=== PATIENT | female | born 1965 | race Caucasian/White ===

== ENCOUNTER → 2017-04-07 | Outpatient (CLI) | payer BC ==
[~2017-04-07] MED LIST: CALTRATE 600 +1 EAC1 PO; CELEBREX200 MG PO; COLACE100 MG PO; DAILY MULTIPLE1 EACH PO; DEPO-PROVER150 MG/ML IM; Depo-Provera IM; HYZAAR 100-21 TABLET PO; METOPROLOL SUCC50 MG PO; PAXIL CR12.5 MG PO; TYLENOL EXTRA500 MG PO; Tylenol Extra Streng PO; VITAMIN B-122500 MCG SL; Vicodin,Lortab 5/500 PO; Zestoretic,Prinzide PO; Zyrtec PO
== END | disposition home or self-care (01) ==
DX: R26.2 Difficulty in walking, not elsewhere classified (principal); M25.561 Pain in right knee; M25.661 Stiffness of right knee, not elsewhere classified; M62.81 Muscle weakness (generalized); M17.11 Unilateral primary osteoarthritis, right knee
CPT/HCPCS: 97161 GP; 97165 GO; 97530 GP; 97537 GO

== ENCOUNTER 2017-04-26 22:02 | Inpatient (IN) | payer BC ==
[~2017-04-26] VITALS: Ht 172.7 cm; Wt 120.4 kg
[~2017-04-26 22:02] MED LIST changes: +IRON325 M1 PO; +MEGACE20 MG PO; +VIVLODEX10 MG PO
[2017-04-27 09:04] VITALS: BP 86/52
[2017-04-27 13:13] LABS: HEMATOCRIT 30.4 % (36.0-46.0); MCH 33.3 PG (29.0-34.0); MCHC 33.2 G/DL (30.0-36.0); MCV 100.3 FL (83-99); MEAN PLAT.VOLUME 9.8 uM^3 (9.5-12.4); PLATELET COUNT 216 K/uL (156-360); RBC DIS.WIDTH-CV 12.6 % (11.8-14.6); RED BLOOD COUNT 3.03 M/uL (3.80-5.20); WHITE BLOOD COUNT 11.1 K/uL (4.1-10.2)
[2017-04-27 13:57] VITALS: BP 95/54
[2017-04-27 16:13] VITALS: BP 113/60
[2017-04-27 20:21] VITALS: BP 117/63
[2017-04-28 00:10] VITALS: BP 108/58
[2017-04-28 04:12] VITALS: BP 101/55
[2017-04-28 04:55] LABS: HEMATOCRIT 28.3 % (36.0-46.0); MCV 99.3 FL (83-99)
[2017-04-28 05:11] LABS: CHLORIDE 105 mEq/L (99-109); POTASSIUM 3.5 mEq/L (3.7-5.4); SODIUM 137 mEq/L (136-147)
[2017-04-28 05:13] LABS: GLUCOSE 93 mg/dL (70-99)
[2017-04-28 05:14] LABS: ANION GAP 12 MEQ/L (2-14)
[2017-04-28 05:17] LABS: GFR ESTIMATE (CALCULATED) > 59 mL/min/
[2017-04-28 05:18] LABS: UREA NITROGEN (BUN) 14 mg/dL (9-23)
[2017-04-28] MEDS ORDERED: SENNA PLUS TAB1 EACH PO (07:51)
[2017-04-28] MEDS ORDERED: HYDROCODON-ACE1 EAC7 PO (07:52)
[2017-04-28] MEDS ORDERED: LOVENOX40 MG/0.4 SC (07:52)
[2017-04-28 08:01] VITALS: BP 104/51; BP 130/73
[2017-04-28 12:02] VITALS: BP 137/60
[2017-04-28 15:53] VITALS: BP 103/59
[2017-04-28 20:16] VITALS: BP 113/62
[2017-04-29 00:09] VITALS: BP 107/62
[2017-04-29 04:10] VITALS: BP 110/58
[2017-04-29 07:07] LABS: HEMATOCRIT 29.7 % (36.0-46.0)
[2017-04-29 08:15] VITALS: BP 110/54
[2017-04-29] MEDS ORDERED: OXYCONTIN10 MG PO (08:41)
== END 2017-04-29 11:27 | DRG 470 ==
LOC: ENRESERV 22:02 → 2SOUTH 04-27 06:52 → 3WEST 04-27 13:40 → 2SOUTH 04-27 15:31 → 3WEST 04-29 11:27
PROVIDERS: Orthopaedic Surgery
PROC: 0SRC0J9 Replacement of Right Knee Joint with Synthetic Substitute, Cemented, Open Approach (ICD-10-PCS; principal; 2017-04-27)
DX: M17.11 Unilateral primary osteoarthritis, right knee (principal); I71.2 Thoracic aortic aneurysm, without rupture; I25.10 Atherosclerotic heart disease of native coronary artery without angina pectoris; I10 Essential (primary) hypertension; E66.01 Morbid (severe) obesity due to excess calories; Z68.41 Body mass index [BMI] 40.0-44.9, adult; D64.9 Anemia, unspecified; H26.9 Unspecified cataract; H93.19 Tinnitus, unspecified ear; R01.1 Cardiac murmur, unspecified; K59.00 Constipation, unspecified; Z82.49 Family history of ischemic heart disease and other diseases of the circulatory system; Z83.3 Family history of diabetes mellitus; Z87.891 Personal history of nicotine dependence; Z98.84 Bariatric surgery status
CPT/HCPCS: 73560; 80048; 85014; 85018; 85027; C1713; J0131; J0690; J1100; J1200; J1650; J1885; J2250; J2405; J2795; J3010; J7050; Q0175; S0020

== ENCOUNTER 2017-06-18 05:38 | Day surgery (SDC) | payer BC ==
[~2017-06-18] VITALS: Ht 175.3 cm; Wt 120.0 kg
[~2017-06-18 05:38] MED LIST changes: +HYDROCODON-ACE1 EAC7 PO; +LOVENOX40 MG/0.4 SC; +OXYCONTIN10 MG PO; +REQUIP0.25 MG PO; +SENNA PLUS TAB1 EACH PO
[2017-06-18] MEDS ORDERED: VICODIN 5-3001 EACH PO (06:34)
[2017-06-18] MEDS ORDERED: HYDROCODON-ACE1 EAC7 PO (06:35)
[2017-06-18] MEDS ORDERED: MIRAPEX0.25 MG PO (06:37)
[2017-06-18 06:46] VITALS: BP 105/57
[2017-06-18 09:39] VITALS: BP 86/50
[2017-06-18 11:06] VITALS: BP 103/59
== END 2017-06-18 11:07 | disposition home or self-care (01) ==
LOC: SDC 05:38
PROC: 0UJD8ZZ Inspection of Uterus and Cervix, Via Natural or Artificial Opening Endoscopic (ICD-10-PCS; principal; 2017-06-18)
PROC: 0UDB7ZX Extraction of Endometrium, Via Natural or Artificial Opening, Diagnostic (ICD-10-PCS; principal; 2017-06-18)
DX: N92.1 Excessive and frequent menstruation with irregular cycle (principal); N84.0 Polyp of corpus uteri; I10 Essential (primary) hypertension; E66.09 Other obesity due to excess calories; Z68.41 Body mass index [BMI] 40.0-44.9, adult; Z87.891 Personal history of nicotine dependence; G47.30 Sleep apnea, unspecified
CPT/HCPCS: 88305; J0330; J0690; J1100; J2405; J3010; J7120; Q0175